=== PATIENT | female | born 1980 | race Caucasian/White ===

== ENCOUNTER 2022-03-18 09:09 | Outpatient (CLI) | payer MEDICAID, SELFPAY ==
--- NOTE | 2022-03-18 09:15 | CRLHL7_ITS ---
For Patients: As a result of the Century Cures Act, medical imaging exams and procedure reports are released immediately into your electronic medical record. You may view this report before your referring provider. If you have questions, please contact your health care provider. INDICATION: Dating and viability COMPARISON: None. TECHNIQUE: Real-time stephen-scale imaging of the pelvis was performed. FINDINGS: Sonographic imaging demonstrates a single living intrauterine gestation. The embryo demonstrates a regular cardiac rate measuring 148 beats per minute. Sonographic gestational age 17 weeks 6 days and sonographic due date 08/20/2022. Sonographic age is 8 days behind the clinical age. position is breech. Placenta is left posterior. Estimated weight 213 grams, 4th percentile. BPD 8th percentile. HC 5th percentile. AC 18th percentile. FL 6th percentile. Cervix is closed measuring 3.6 cm. Amniotic fluid is normal with single deepest pocket 3.9 cm. IMPRESSION: Gestational age calculated at 17 weeks 6 days with a sonographic due date of 08/20/2022. Dictated by Lion Cali MD @ 03/18/2022 1:35:38 PM (Electronically Signed)
== END 2022-03-18 09:10 | disposition home or self-care (01) ==
LOC: US 09:14
PROVIDERS: PCP Family Medicine; Visit Provider Advanced Practice Midwife
DX: Z34.92 Encounter for supervision of normal pregnancy, unspecified, second trimester (principal); Z3A.17 17 weeks gestation of pregnancy
CPT/HCPCS: 76815

== ENCOUNTER 2022-03-18 10:37 | Outpatient (CLI) | payer MEDICAID, SELFPAY ==
[2022-03-18 16:40] LABS: Amphetamine Screen Urine Negative (Negative); Barbiturate Screen Urine Negative (Negative); Benzodiazepines Screen Urine Negative (Negative); Cannabinoid Screen Urine Negative (Negative); Cocaine Screen Urine Negative (Negative); Methadone Screen Urine Negative (Negative); Methamphetamines Screen Urine Negative (Negative); Opiate Screen Urine Negative (Negative); Oxycodone Screen Urine Negative (Negative); Phencyclidine Screen Urine Negative (Negative); Tricyclic Antidepressant Urine Negative (Negative)
[2022-03-18 16:57] LABS: Hepatitis B Surface Antigen* Negative (Negative)
[2022-03-18 17:05] LABS: HIV 1/2/P24 Combo Screen* Negative (Negative)
[2022-03-18 17:14] LABS: Hepatitis C Virus Antibody* Negative (Negative)
[2022-03-20 00:54] LABS: Rapid Plasma Reagin (RPR) Non Reactive (Non Reactive)
[2022-03-20 03:02] LABS: Rubella Antibody IgG 10.5 IU/mL
[2022-03-20 03:30] LABS: Varicella-Zoster Virus Ab, IgG 448.8 IV
== END 2022-03-18 10:38 | disposition home or self-care (01) ==
PROVIDERS: PCP Family Medicine; Visit Provider Advanced Practice Midwife
DX: Z34.92 Encounter for supervision of normal pregnancy, unspecified, second trimester (principal); Z3A.17 17 weeks gestation of pregnancy
CPT/HCPCS: 80306; 84443; 86592; 86703; 86762; 86787; 86803; 86850; 86900; 86901; 87086; 87340

== ENCOUNTER 2022-05-28 08:44 | Outpatient (CLI) | payer MEDICAID, SELFPAY | END 2022-05-28 08:45 | disposition home or self-care (01) | LOC: NFLDREF 05-30 05:50 | PROVIDERS: PCP Family Medicine; Referring Provider Family Medicine; Visit Provider Advanced Practice Midwife | DX: Z34.92 Encounter for supervision of normal pregnancy, unspecified, second trimester (principal) | CPT/HCPCS: 86592 ==

== ENCOUNTER 2022-07-09 07:21 | Outpatient (CLI) | payer MEDICAID, SELFPAY ==
--- NOTE | 2022-07-09 07:15 | CRLHL7_ITS ---
For Patients: As a result of the Century Cures Act, medical imaging exams and procedure reports are released immediately into your electronic medical record. You may view this report before your referring provider. If you have questions, please contact your health care provider. INDICATION: 42 year-old female. Advanced maternal age. Follow-up. TECHNIQUE: Transabdominal obstetrical ultrasound. COMPARISON: March 18, 2022. FINDINGS: Single living intrauterine in vertex presentation. Posterior and left lateral placenta. heart rate 168 beats per minute. Normal amniotic fluid. Single deepest pocket measurement 6.9 cm. Biparietal diameter 8.1 cm, 32 weeks 5 days, 13th percentile. Head circumference 30.3 cm, 33 weeks 4 days, 10th percentile. Abdominal circumference 29.5 cm, 33 weeks 3 days, 37th percentile. Femur length 6.6 cm, 34 weeks 1 day, 45th percentile. Composite calculated ultrasound age 33 weeks 3 days with a sonographic due date of August 24, 2022. Appropriate growth and maturation in the interval. Estimated weight 2231 g which lies at the 31st percentile. The head to abdominal circumference ratio is normal at 1.03 (0.95-1.11). IMPRESSION: 1. Single living intrauterine in vertex presentation. Posterior and left lateral placenta. 2. Composite calculated ultrasound age 33 weeks 3 days with a sonographic due date of August 24, 2022. Appropriate growth and maturation in the interval. 3. Estimated weight lies at the 31st percentile. Dictated by Braden Johnson MD @ 07/09/2022 8:50:08 AM (Electronically Signed)
== END 2022-07-09 07:22 | disposition home or self-care (01) ==
LOC: US 07:21
PROVIDERS: PCP Family Medicine; Visit Provider Obstetrics & Gynecology
DX: O09.523 Supervision of elderly multigravida, third trimester (principal); Z3A.33 33 weeks gestation of pregnancy
CPT/HCPCS: 76816

== ENCOUNTER 2022-08-19 05:06 | Inpatient (IN) | payer MEDICAID, SELFPAY ==
[2022-08-19] VITALS (31 sets, daily range): BP systolic 97–130; BP diastolic 59–85; PULSE 45–91; RESP 16–18; TEMP 36.2–36.7; O2SAT 94–100; BMI 34.9
[2022-08-19] MEDS: LACTATED RINGERS 1000 ML 1,000 ML 999 ML IV (06:10)
[2022-08-19] MEDS: LACTATED RINGERS 1000 ML 1,000 ML 125 ML IV ×2 (07:15→13:11)
--- NOTE | 2022-08-19 07:15 | W.ANESCHARGE ---
Anesthesia Charges Start Date/Time Anesthesia Start Date: 08/19/22 Anesthesia Start Time: 07:23 Stop Date/Time Anesthesia Stop Date: 08/19/22 Anesthesia Stop Time: 08:53
--- NOTE | 2022-08-19 07:28 | W.PM.LDBA ---
Subjective History of Present Illness Narrative: Patient is being admitted to Labor and Delivery for bilateral salpingectomy. She is a 42 year old at 39 weeks, 6 days gestation. Specific Issues/Plans -Uzair *per pt report in surgery with all 3 C/S had very low BP on her arm but normal on her leg* Baby Sierra *prefers Mecca Wade or Afshan Wynne for music during 1. Late care at 19.0 weeks. unplanned and found out just prior to NOB. UDS: neg at NOB 2. AMA, > 40 y.o. Genetic screening: declines at NOB Level II and MFM consult: Level II completed w/ MFM Growth U/S 34 weeks:? EFW 31% with all growth parameters in normal ranges, SDP 6.9, cephalic. Weekly NST starting at 36 weeks Delivery by 39 weeks: planning c/s 3. C/S x 3. Last 10 years ago.? Undesired fertility. planning repeat with bilateral salpingectomy 08/19/22 4. Size<dates at NOB. 4% (all other kids around 7 lbs) MFM referral placed for consultation and anatomy scan. Re-dated by MFM/ultrasound;??dating by 2nd trimester US growth restriction per MFM on 03/24. EFW 6% (based off of LMP EDC of 08/12/22). Repeat US by MFM on 04/14/22: EFW 33%, anatomy normal, appropriate growth.? 5.??Breech presentation newly noted 08/06/22.?? NEEDS pap Her full history and physical was dictated by Dr. Amor on 07/28/2022. Please see this for details. OB - Problem Based A/P Additional Plan (1) Breech presentation on examination: Status: Acute (2) History of 3 sections: Problem details: 2007, 2008, 2012 Status: Acute Plan: Repeat with bilateral salpingectomy today. OB Exam Physical Exam Vital signs: Temp Pulse Resp BP Pulse Ox 97.9 F 62 16 112/68 95 08/19/22 05:47 08/19/22 05:47 08/19/22 05:47 08/19/22 05:47 08/19/22 05:47 Narrative: Physical exam: General: No acute distress Psych: Alert and oriented x3, full affect HEENT: Normocephalic, atraumatic Heart: Regular rate and rhythm, no murmur rub or gallop Lungs: Clear to auscultation bilaterally Abdomen: Soft, nontender, gravid, breech presentation confirmed by Dr. Méndez
[2022-08-19 08:15] LABS: Basophils Absolute Auto 0.02 K/uL (0.00-0.30); Basophils Percent Auto 0.2 % (0.0-3.0); Eosinophils Percent Auto 1.1 % (0.0-7.0); Hematocrit 36.5 % (33.0-51.0); Hemoglobin* 12.3 gm/dL (12.0-16.0); Immature Granulocytes Abs Auto 0.01 K/uL (0.00-0.30); Immature Granulocytes Pct Auto 0.1 %; Lymphocytes Percent Auto 19.8 % (20-44); Mean Corpuscular HGB Conc 34 gm/dL (32-36); Mean Corpuscular Hemoglobin 31 pg (26-34); Mean Corpuscular Volume 93 fL (80-100); Monocytes Percent Auto 4.7 % (0.0-11.0); Neutrophils Percent Auto 74.1 % (42.0-72.0); Platelet Count* 230 K/uL (140-440); RDW Coefficient of Variation % 13.8 % (11.5-15.5); Red Blood Count 3.93 m/uL (4.00-5.20); White Blood Count* 9.27 K/uL (4.50-11.00)
[2022-08-19 08:27] LABS: Slide Review Reflex No
--- NOTE | 2022-08-19 08:48 | P.NB_ITS ---
Nerve Block Nerve Block Time Seen by Provider: 08:43 Date Seen: 08/19/22 Type of block requested by surgeon for post-operative analgesia: TAP Side: bilateral Time out performed: Yes Verification of patient name: Yes Verification of date of : Yes Site marking: site marked Name of person performing procedure: Flaco Continuous monitoring Was continuous monitoring of O2 sat, B/P, tetryl dissolver operator, recorded every 15 minutes?: Yes Procedure Checklist: sterile prep, needles and gloves Ultrasound guided. Images saved: Yes Medications given in 5ml increments after negative aspiration: Marcaine %: 0.25 mL: 30 Needle gauge: 20 and Exparel mL: 10 Patient tolerated procedure well: Yes Additional comments: Needle noted adjacent to nerve Block Charges Block Charge (with Pro Fee): TAP Bilateral Use of Ultrasound Machine for Block: Yes- US Guidance/pain block
--- NOTE | 2022-08-19 08:53 | W.ANESCHARGE ---
Anesthesia Charges Start Date/Time Anesthesia Start Date: 08/19/22 Anesthesia Start Time: 07:23 Stop Date/Time Anesthesia Stop Date: 08/19/22 Anesthesia Stop Time: 08:53
--- NOTE | 2022-08-19 09:02 | P.OBPRC_ITS ---
Procedure Procedure Done: [employer]: Anna Ferguson Anesthesia type: Spinal Complications: None
[2022-08-19] MEDS: ACETAMINOPHEN 500 MG TABLET 1000 MG PO (10:13)
[2022-08-19] MEDS: MORPHINE 2 MG/ML inj IVP (11:19)
[2022-08-19 12:11] LABS: Hematocrit 36.4 % (33.0-51.0); Hemoglobin* 12.3 gm/dL (12.0-16.0); Mean Corpuscular HGB Conc 34 gm/dL (32-36); Mean Corpuscular Hemoglobin 32 pg (26-34); Mean Corpuscular Volume 94 fL (80-100); Platelet Count* 218 K/uL (140-440); Red Blood Count 3.89 m/uL (4.00-5.20); White Blood Count* 16.83 K/uL (4.50-11.00)
[2022-08-19 12:13] LABS: Slide Review Reflex No
[2022-08-19 13:05] LABS: Chloride* 105 mmol/L (96-114); Potassium* 4.2 mmol/L (3.6-5.1); Sodium* 133 mmol/L (135-149)
[2022-08-19 13:07] LABS: Creatinine* 0.6 mg/dL (0.5-1.5); Est. Creatinine Clearance* 106.55; Estimated Glomerular Filt Rate 116 ml/min
[2022-08-19 13:08] LABS: Blood Urea Nitrogen* 5 mg/dL (5-24); Calcium* 8.8 mg/dL (8.4-10.6); Carbon Dioxide* 23 mmol/L (20-32); Glucose* 92 mg/dL (60-115)
[2022-08-19] MEDS: KETOROLAC 30 MG/ML inj IVP ×2 (14:39→20:28)
[2022-08-20] VITALS (11 sets, daily range): BP systolic 91–112; BP diastolic 55–65; PULSE 52–78; RESP 16–18; TEMP 36.4–36.9; O2SAT 95–99
[2022-08-20] MEDS: KETOROLAC 30 MG/ML inj IVP ×3 (02:28→14:36)
[2022-08-20 04:15] LABS: Hemoglobin* 11.4 gm/dL (12.0-16.0)
[2022-08-20] MEDS: ACETAMINOPHEN 500 MG TABLET 1000 MG PO ×4 (04:44→23:08)
--- NOTE | 2022-08-20 07:51 | PM.OBPNCS1 ---
OB - PN: A/P Assessment and Plan (1) Breech presentation on examination: Status: Acute (2) History of 3 sections: Problem details: 2007, 2008, 2012 Status: Acute Plan day: 1 Plan: routine postop care Comments: Assessment/Plan G 5 P 4 status post uncomplicated repeat . 1. ?Continue route PP cares 2. ?. ?May see if desired 3. ?Anticipate discharge home tomorrow or the following day per pt preference OB - PN: Subj Subjective Time Seen by Provider: 07:51 Date Seen: 08/20/22 Interval history: Veilka is a 42 y.o. who was admitted to L & D for repeat . ?She had an uncomplicated . ? Patient comments: no complaints Benson status: and doing well feeding status: exclusively Narrative: The patient feels well. ?The pain is well controlled with current medications. ?She has no new complaints. ?She is breast feeding and reports things are going well.? the patient has done well.? Vitals have been stable.? She has remained afebrile.? Has a good appetite, is tolerating a general diet. ?Her levine catheter remains in place at this time.? She is passing gas and has not had a bowel movement.? She is ambulating and denies any dizziness.? Has Small amount of rubra lochia. OB - PN: Obj Exam Physical Exam: Vital signs: Temp Pulse Resp BP Pulse Ox O2 Del Method 98.1 F 61 18 91/55 L 95 Room Air 08/20/22 04:34 08/20/22 04:34 08/20/22 04:34 08/20/22 04:34 08/20/22 00:35 08/20/22 04:34 Narrative: VSS. Afebrile GENERAL APPEARANCE: ?normal affect, alert, no distress MOOD: ?appropriate HEENT: normocephalic, neck supple, full ROM CHEST: ?Symmetrical chest wall movement. ?Normal respiratory effort. ?Clear to auscultation HEART: ?regular rate and rhythm ABDOMEN: ?soft, non-tender. Uterine fundus is firm, at Umbilicus, Midline and is appropriate for the stage of recovery. ?Bowel sounds present. EXTREMITIES: ?normal and no edema SKIN: warm, dry. Dressing on, clean/dry/intact. No signs of infection noted. Urinary Catheter Management: Urethral: Cath placed during this visit: yes Urethral indwelling: Yes Reason for continuing: surgical procedure Insertion date: 08/19/22 Insertion time: 07:30 OB - PN: Obj Data Labs Labs: Laboratory Results - last 24 hr 08/19/22 08/19/22 08/20/22 06:05 12:05 04:05 WBC 9.27 16.83 H RBC 3.93 L 3.89 L Hgb 12.3 12.3 11.4 L Hct 36.5 36.4 MCV 93 94 MCH 31 32 MCHC 34 34 RDW Coeff of Jayashree 13.8 Plt Count 230 218 Neut % (Auto) 74.1 H Lymph % (Auto) 19.8 L [place] % (Auto) 4.7 Eos % (Auto) 1.1 Baso % (Auto) 0.2 Neut # (Auto) 6.90 Lymph # (Auto) 1.80 [place] # (Auto) 0.40 Eos # (Auto) 0.10 Baso # (Auto) 0.02 Sodium 133 L Potassium 4.2 Chloride 105 Carbon Dioxide 23 BUN 5 Creatinine 0.6 Estimated Creat Clear 106.55 Estimated GFR 116 Glucose 92 Calcium 8.8
[2022-08-20] MEDS: DOCUSATE SODIUM 100 MG CAPSULE PO (08:35)
[2022-08-20] MEDS: IBUPROFEN 600 MG TABLET PO (19:58)
[2022-08-21] MEDS: IBUPROFEN 600 MG TABLET PO ×2 (02:10→07:59)
[2022-08-21 04:45] VITALS: BP 114/71; PULSE 58; RESP 16; TEMP 36.8; O2SAT 97
[2022-08-21] MEDS: ACETAMINOPHEN 500 MG TABLET 1000 MG PO ×2 (04:57→11:06)
[2022-08-21] MEDS: DOCUSATE SODIUM 100 MG CAPSULE PO (08:00)
--- NOTE | 2022-08-21 08:46 | PM.OBDSCS1 ---
DS: Providers Provider Date Seen: 08/21/22 Date of admission: 08/19/22 05:06 Primary care physician: Not a Local Provider Admitting Clinician: Gia Amor MD Attending Physician on discharge: Clarita Chery MD Date of Discharge: 08/21/22 DS: Diagnosis Discharge Diagnosis (1) Breech presentation on examination: Status: Acute (2) History of 3 sections: Status: Acute Problem details: 2007, 2008, 2012 (3) Late care: Status: Acute (4) Multigravida of advanced maternal age: Status: Acute Exam Narrative: Exam Narrative: VITAL SIGNS: As noted above. GENERAL APPEARANCE: Alert, cooperative female in no acute distress. MOOD & AFFECT: Normal. ABDOMEN: Soft, non-distended and appropriately tender, incision healing well, no surrounding erythema, induration or abnormal discharge. : Normal lochia. EXTREMITIES: Nonedematous. Well perfused. Nontender. Const: Vital Signs, click to edit/add: Vital Signs - 24 hr 08/20/22 09:37 08/20/22 10:17 08/20/22 11:17 Temperature Pulse Rate [Pulse Oximeter] Respiratory Rate 16 16 16 Blood Pressure [Ri ght Arm] Pulse Oximetry Oxygen Delivery Me thod 08/20/22 15:50 08/20/22 20:03 08/21/22 04:45 Temperature 98.2 F 97.6 F 98.2 F Pulse Rate [Pulse Oximeter] 52 L 78 58 L Respiratory Rate 18 16 16 Blood Pressure [Ri ght Arm] 112/65 100/62 114/71 Pulse Oximetry 97 99 97 Oxygen Delivery Me thod Room Air Room Air Room Air OB - DS: Summary Hospital Course Hospital Course: The patient is a 42 year old G 5 P 4014 at 396/7 weeks gestation that was admitted to the Center on 08/19/22 for repeat delivery. She had an uncomplicated delivery. She delivered a viable female . She is breast feeding. the patient has done well. Peripartum Data Procedures: Procedures Operation Date: 08/19/22 07:15 Actual Procedure Side Surgeon p Repeat Section, Bilateral Tubal Ligation Gia Amor MD complications: none [place] Infant Gender: Female Status at Discharge Functional status at discharge: independent ambulation Overall status at discharge: patient is progressing back to baseline Time Spent with Patient Time attestation: Total time spent providing and/or coordinating discharge services: Time spent: Less than 30 minutes Discharge Plan Discharge Disposition: Home, Self-Care Date of Admission: 08/19/22 05:06 Attending Provider on Discharge: Clarita Chery Primary Care Provider: Provider,Not a Local Condition: Stable Anticipated Discharge Date/Time: 08/21/22 12:00 Discharge Medications: New acetaminophen 500 mg Tablet 1,000 mg PO Q6H PRN (Reason: Pain) Qty: 30 0RF docusate sodium 100 mg Capsule 100 mg PO DAILY Qty: 30 0RF ibuprofen 600 mg Tablet 600 mg PO Q6H PRN (Reason: Pain) Qty: 30 0RF oxycodone 5 mg Tablet 5 - 10 mg PO Q4H PRN (Reason: Pain) Qty: 20 0RF Continued ascorbate calcium (vitamin C) 500 mg tablet 500 mg PO QDAY cholecalciferol (vitamin D3) 125 mcg (5,000 unit) capsule 125 mcg PO QDAY Probiotic 3 billion cell capsule 3,000 mmu cells PO QDAY Rx Instructions: administer with a meal ferrous sulfate 325 mg (65 mg iron) tablet 325 mg PO QDAY Discontinued pyridoxine (vitamin B6) 50 mg tablet 25 mg PO ONCE Discharge Orders: Discharge Order (Routine); Ordered 08/21/22 Ordered By: Clarita Chery Patient Education: OB /Breast Feeding Activity Level: No strenuous activity and No Weight Bearing Activity Detail: No lifting more than 15-20 lb until 6 weeks , nothing vaginally for 6 weeks Discharge Diet: Regular Follow Up Appointments: Provider,Not a Local [Primary Care Provider] - Forms: MyHealth Info Instructions
[2022-08-21 09:08] VITALS: BP 116/69; PULSE 65; RESP 16; TEMP 36.6; O2SAT 96
== END 2022-08-21 12:05 | disposition home or self-care (01) | DRG 785 ==
PROVIDERS: Obstetrics & Gynecology; Admitting Provider Obstetrics & Gynecology; Visit Provider Obstetrics & Gynecology
PROC: 10D00Z1 Extraction of Products of Conception, Low, Open Approach (ICD-10-PCS; CPT 59514; principal; 2022-08-19 07:15)
DX: O34.211 Maternal care for low transverse scar from previous cesarean delivery (principal); O32.1XX0 Maternal care for breech presentation, not applicable or unspecified; Z30.2 Encounter for sterilization; Z3A.39 39 weeks gestation of pregnancy; Z37.0 Single live birth; G89.18 Other acute postprocedural pain
CPT/HCPCS: 01961; 36415; 64488; 76942; 80048; 85018; 85025; 85027; 86850; 86900; 86901; 88302; A9270; C9290; J1100; J1200; J1885; J2270; J2274; J2370; J2405; J2590; J3490; J7120

== ENCOUNTER 2024-01-09 07:50 | Outpatient (CLI) | payer MEDICAID, SELFPAY | END 2024-01-09 07:51 | disposition home or self-care (01) | LOC: NFLDREF 15:34 | PROVIDERS: Visit Provider Physician Assistant | DX: Z13.6 Encounter for screening for cardiovascular disorders (principal) | CPT/HCPCS: 80061 ==

== ENCOUNTER 2024-04-05 09:01 | Outpatient (CLI) | payer MEDICAID, SELFPAY ==
--- NOTE | 2024-04-05 09:15 | CRLHL7_ITS ---
For Patients: As a result of the Century Cures Act, medical imaging exams and procedure reports are released immediately into your electronic medical record. You may view this report before your referring provider. If you have questions, please contact your health care provider. BILATERAL SCREENING MAMMOGRAM WITH COMPUTER-AIDED DETECTION AND TOMOSYNTHESIS TECHNIQUE: CC and MLO views were obtained. These mammographic images have been obtained using full-field digital technique. These mammographic images were interpreted with the benefit of computer-aided detection. Breast Tomosynthesis was used in this interpretation. COMPARISON FILM: Baseline. FINDINGS: There are scattered areas of fibroglandular density. IMPRESSION: There is no radiographic evidence for malignancy. ASSESSMENT: BI-RADS Category 1: Negative RECOMMENDATION: Routine screening mammogram in 1 year. A lay language report of this examination will be provided to the patient. Braden Johnson M.D. Diagnostic/Nuclear Medicine Radiologist [email or web address] ANTOINETTE/pamela SP/Dictated by: Braden Johnson MD @ 04/05/2024 11:38:00 AM (Electronically Signed)
== END 2024-04-05 09:02 | disposition home or self-care (01) ==
LOC: MAMMO 09:03
PROVIDERS: Visit Provider Physician Assistant
DX: Z12.31 Encounter for screening mammogram for malignant neoplasm of breast (principal)
CPT/HCPCS: 77063; 77067